=== PATIENT | female | born 1995 | race Caucasian/White ===

== ENCOUNTER 2018-08-13 06:08 | Emergency (ER) | payer BC ==
[~2018-08-13] VITALS: Ht 175.3 cm; Wt 65.8 kg
[2018-08-13 06:19] VITALS: BP 107/56
--- NOTE | 2018-08-13 07:04 | Emergency Room Report ---
History of Present Illness General Chief Complaint: Laceration Source: Patient Present Illness HPI Patient presents with complaints of laceration to the nasal bridge this happened about one hour prior to arrival It occurred when a glass candle fell onto the patient's nasal bridge Denies any lapse of consciousness denies any chest pain or shortness of breath denies any back or flank pain denies any neck pain Discomfort is localized to the lacerated area Allergies: Coded Allergies: PENICILLINS (Verified Allergy, Severe, 08/13/18) CEFOTAXIME (Verified Allergy, Unknown, 08/13/18) MINOCYCLINE (Verified Allergy, Unknown, 08/13/18) TREE NUT (Verified Allergy, Unknown, 08/13/18) Patient History Past Medical History: see triage record Pertinent Family History: none Last Menstrual Period: 07/28/18 Now: No Reviewed Nursing Documentation: PMH: Agreed; PSxH: Agreed Nursing Documentation-PMH Past Medical History: No Stated History Review of Systems All Other Systems: negative except mentioned in HPI Physical Exam Vital Signs Date Time Temp Pulse Resp B/P (MAP) Pulse Ox O2 Delivery O2 Flow Rate FiO2 08/13/18 06:12 98.1 69 16 107/56 96 98.1 Sp02 EP Interpretation: reviewed, normal General Appearance: well appearing, no apparent distress Head: normocephalic, atraumatic Eyes: bilateral eye PERRL, bilateral eye EOMI ENT: other - Approximately half centimeter Laceration nasal bridge Neck: full range of motion, supple Respiratory: lungs clear Musculoskeletal: normal inspection Neurologic: alert, oriented x3, responsive Skin: other - As above Lymphatic: no adenopathy Procedures Laceration/Wound Repair Laceration/Wound Repair : Consent: Verbal Wound Location: face Wound's Depth, Shape: into muscle, linear Wound Length (cm): 0 Wound Explored: clean Wound Debrided: minimal Wound Repaired With: sutures Suture Size/Type: 6:0 Number of Sutures: 2 Patient Tolerated: Well Complications: None Progress The more lateral aspect of the laceration used two sutures. Dermabond was also applied to the more medial aspect as it was better approximated, and patient tolerated procedure well Medical Decision Making Diagnostic Impression: Primary Impression: facial laceration ER Course Laceration was addressed using sutures and Dermabond in combination Patient does not meet any emergency criteria for further imaging studies Regarding possible fractures there is no obvious large hematoma no obvious deviations There was no evidence of septal hematoma and patient did not have any further imaging, Last Vital Signs Date Time Temp Pulse Resp B/P (MAP) Pulse Ox O2 Delivery O2 Flow Rate FiO2 08/13/18 06:19 98.1 16 107/56 96 98.1 08/13/18 06:12 69 Status: improved Disposition: HOME, SELF-CARE Condition: Improved Referrals: NOT CHOSEN IPA/MD,REFERRING (PCP) Patient Instructions: Facial Laceration Additional Instructions: Patient is provided with the discharge instructions notified to follow up with primary doctor in the next 2-3 days otherwise return to the er with any worsening symptoms. Please note that this report is being documented using [employer] technology. This can lead to erroneous entry secondary to incorrect interpretation by the dictating instrument. Osmani Jacobsen DO Aug 13, 2018 07:03
[2018-08-13 07:05] VITALS: BP 107/56
== END 2018-08-13 07:00 | disposition home or self-care (01) ==
LOC: EMR 06:32
DX: S01.21XA Laceration without foreign body of nose, initial encounter (principal); W20.8XXA Other cause of strike by thrown, projected or falling object, initial encounter; Y92.9 Unspecified place or not applicable; Z88.0 Allergy status to penicillin
CPT/HCPCS: 99283